=== PATIENT | male | born 1990 | race African-American/Black ===

== ENCOUNTER 2019-02-14 13:50 | Emergency (ER) | payer MEDICAID ==
[~2019-02-14] VITALS: Ht 172.7 cm; Wt 70.3 kg
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
[2019-02-14] MEDS ORDERED: TDAP [DIPH/PERTUSSIS/TET] 0.5 ML VIAL IM ONE ×2 (14:30→14:34)
[2019-02-14] MEDS ORDERED: HYDROCODONE/APAP 10/325MG 1 EA TABLET PO ONE (14:30)
[2019-02-14] MEDS ORDERED: HYDROCODONE/APAP 10/325MG 1 EA TABLET ONE (14:34)
[2019-02-14 16:12] VITALS: BP 135/71
--- NOTE | 2019-02-14 16:12 | NUR ---
Patient discharged to home in stable condition. Written and verbal after care instructions given. Patient verbalizes understanding of instruction.
== END 2019-02-14 16:12 | disposition home or self-care (01) ==
LOC: ER 13:57
DX: S90.32XA Contusion of left foot, initial encounter (principal); S80.11XA Contusion of right lower leg, initial encounter; M54.2 Cervicalgia; R51 Headache; V09.9XXA Pedestrian injured in unspecified transport accident, initial encounter; Y93.I9 Activity, other involving external motion; Y92.480 Sidewalk as the place of occurrence of the external cause; Y99.8 Other external cause status
CPT/HCPCS: 72040-TC; 73590-TC; 73610-TC; 73630-TC; 90715